=== PATIENT | female | born 1985 | race Hispanic/Latino ===

== ENCOUNTER 2018-09-21 17:54 | Emergency (ER) | payer MEDICAID, OTHER ==
[2018-09-21 17:54] VITALS: BMI 24.7
[2018-09-21 19:42] VITALS: BP 108/67; PULSE 88; RESP 16; TEMP 98.8; O2SAT 100
[2018-09-21] MEDS ORDERED: Oxycodone/Acetaminophen 5/325 mg Tab PO ONE (20:20)
--- NOTE | 2018-09-21 20:52 | ED PDOC ---
HPI: Dental Pain/Injury Time Seen by Provider: 09/21/18 19:57 Chief Complaint (Nursing): Dental Pain Chief Complaint (Provider): Dental Pain History Per: Patient History/Exam Limitations: no limitations Onset/Duration Of Symptoms: Days Current Symptoms Are (Timing): Still Present Additional Complaint(s): 32 year old female with a no past medical history who is presenting to the ED for evaluation of left jaw pain ongoing for a few days. Patient states that she has a broken molar in lower left of mouth and was due to have surgery around [place] but drank water and it was cancelled. She admits that she has not been able to get another appointment and also admits that her mother recently obtained amoxicillin over the counter which she took for 7 days about 2 weeks ag with improvement in pain. She states that the pain returned 2 days ago and now notes swelling to left jaw associated with ear pain. Of note, patient states that she has been taking Ibuprofen 600 mg with no improvement with her last dose being 10 am this morning. She denies any fevers, chills, or sore throat. PMD: Michelle Henderson Past Medical History Reviewed: Historical Data, Nursing Documentation, Vital Signs Vital Signs: Last Vital Signs Temp 98.8 F 09/21/18 19:40 Pulse 88 09/21/18 19:40 Resp 16 09/21/18 19:40 BP 108/67 09/21/18 19:40 Pulse Ox 100 09/21/18 19:40 - Medical History PMH: Anemia, Asthma - Surgical History Surgical History: Appendectomy - Family History Family History: States: Unknown Family Hx - Social History Current smoker - smoking cessation education provided: No Alcohol: None Drugs: Denies - Immunization History Hx Tetanus Toxoid Vaccination: No Hx Influenza Vaccination: No Hx Pneumococcal Vaccination: No - Home Medications Home Medications: Ambulatory Orders Medication Instructions Recorded Aluminum Hydroxide/Magnesium H 30 ml PO BID #1 bottle 01/25/14 [Maalox 30 ml] Ondansetron ODT [Zofran ODT] 1 odt PO BID PRN #6 odt 01/25/14 oxyCODONE/Acetaminophen [Percocet 1 tab PO QID PRN #5 tab 01/25/14 5/325 mg Tab] Ondansetron [Zofran] 4 mg PO Q8H PRN #10 tab 05/02/15 Vit No.126/Iron/Folic 1 tab PO DAILY 10/11/15 [Classic Tablet] Clindamycin [Cleocin] 450 mg PO TID 7 Days cap 09/21/18 oxyCODONE/Acetaminophen [Percocet 1 ea PO Q6 #2 tab 09/21/18 5/325 mg Tab] - Allergies Allergies/Adverse Reactions: Allergies Allergy/AdvReac Type Severity Reaction Status Date / Time strawberry Allergy RASH Verified 09/21/18 19:40 Review of Systems ROS Statement: Except As Marked, All Systems Reviewed And Found Negative Constitutional: Negative for: Fever, Chills ENT: Positive for: Other (jaw pain and dental pain). Negative for: Throat Pain Physical Exam - Reviewed Nursing Documentation Reviewed: Yes Vital Signs Reviewed: Yes - Physical Exam Appears: Positive for: Non-toxic, No Acute Distress, Uncomfortable (tearful during exam ) Head Exam: Positive for: ATRAUMATIC, NORMAL INSPECTION, NORMOCEPHALIC Skin: Positive for: Normal Color, Warm, DRY ENT: Positive for: Other (oral: left mandible with ulceration at area distal to final molar site of prior molar mildly erythematous no purulent drainage noted. Left sided facial swelling and tenderness to palpation of left mandible ) Neurologic/Psych: Positive for: Alert, Oriented. Negative for: Motor/Sensory Deficits - ECG O2 Sat by Pulse Oximetry: 100 (RA) Pulse Ox Interpretation: Normal Medical Decision Making Medical Decision Making: Time: 20:20 Plan: --Percocet 5/325 PO x1 --advised to follow up with dentists jasson as pain will not subside until possible abscess is treated --prescription for clindamycin given -- advised to compete full course --patient will be discharged home. Scribe Attestation: Documented by, Elise Waterman acting as a scribe for Hayley Vanesa-Wilson PA-C. Provider Scribe Attestation: All medical record entries made by the Scribe were at my direction and personally dictated by me. I have reviewed the chart and agree that the record accurately reflects my personal performance of the history, physical exam, medical decision making, and the department course for this patient. I have also personally directed, reviewed, and agree with the discharge instructions and disposition. Disposition - Clinical Impression Clinical Impression: Dental abscess - Patient ED Disposition Is Patient to be Admitted: No - Disposition Disposition: Routine/Home Disposition Time: 20:40 Condition: STABLE Additional Instructions: Take antibiotics as prescribed. Continue to alternate Ibuprofen and Tylenol for pain. F/u with dentist JASSON. Prescriptions: Clindamycin [Cleocin] 450 mg PO TID 7 Days cap oxyCODONE/Acetaminophen [Percocet 5/325 mg Tab] 1 ea PO Q6 #2 tab Instructions: Tooth Abscess (DC), Dental Pain (DC) Forms: [facility] (Swiss) Print Language: MOSOTHO
== END 2018-09-21 20:46 | disposition home or self-care (01) ==
LOC: H.ER 17:54
DX: K04.7 Periapical abscess without sinus (principal)